=== PATIENT | female | born 1940 | race African-American/Black ===

== ENCOUNTER 2022-06-07 15:32 | Emergency (ER) | payer OTHER ==
[~2022-06-07] VITALS: Ht 149.9 cm; Wt 83.0 kg
[2022-06-07 16:13] VITALS: BP 112/63
[2022-06-07 18:07] LABS: Hematocrit 35.7 % (36.0-46.0); Hemoglobin 12.1 g/dL (12.2-16.2); Mean Corpuscular Hemoglobin 34.5 pg (28.0-32.0); Mean Corpuscular Volume 101.5 fL (80.0-100.0); Red Blood Cells 3.51 10^6/uL (4.0-5.20); Red Cell Distribution Width 13.4 % (11.8-14.3); White Blood Cell 3.9 10^3/uL (4.4-10.8)
[2022-06-07 18:09] LABS: Band Neutrophils % (manual) 0; Basophils % (manual) 0 (0.0-2.0); Blast Cells 0; Metamyelocytes % 0; Myelocytes % 0; Promyelocytes % 0; Reactive Lymphocytes 0
[2022-06-07 18:18] LABS: Albumin 3.6 g/dL (3.4-5.0); BUN/Creatinine Ratio 19.3; Calcium 8.4 mg/dL (8.5-10.1); Potassium 4.2 mmol/L (3.5-5.1)
[2022-06-07 18:20] LABS: Bilirubin, Total 0.4 mg/dL (0.2-1.0)
[2022-06-07 18:55] LABS: Eosinophils % (manual) 18 (0-7); Lymphocytes % (manual) 35 (10.0-50.0); Monocytes % (manual) 6 (0-12)
[2022-06-07] MEDS ORDERED: methylPREDNISolone SOD SUCC 125 MG/2 ML VL IV ONE (21:15)
[2022-06-07] MEDS ORDERED: diphenhdrAMINE HCL 50 MG/1 ML VL IV ONE (21:15)
[2022-06-07] MEDS ORDERED: IOHEXOL 350 MG/ML 100ML IJ ONE (22:36)
[2022-06-07] MEDS ORDERED: LORA-622 PO (23:02)
[2022-06-07] MEDS ORDERED: DEX4T PO (23:06)
[2022-06-07] MEDS ORDERED: METH4PAK PO (23:06)
== END 2022-06-07 23:59 | disposition home or self-care (01) ==
LOC: ER 15:32
DX: J30.9 Allergic rhinitis, unspecified (principal); Z20.822 Contact with and (suspected) exposure to COVID-19
CPT/HCPCS: 36415; 71046; 71275; 80053; 83605; 83735; 83880; 84484; 85007; 85027; 85379; 87040; 87426; 87804; 96374; 96375; 99285; J2930; Q9967

== ENCOUNTER 2024-01-25 18:18 | Emergency (ER) | payer OTHER, MEDICAID ==
[~2024-01-25] VITALS: Ht 162.6 cm; Wt 83.0 kg
[~2024-01-25 18:18] MED LIST: DEX4T PO; LORA-622 PO
[2024-01-25] MEDS: HYDROcodone-ACET 5/325MG TAB PO ONE (18:55)
[2024-01-25 19:23] LABS: Hematocrit 30.1 % (36.0-46.0)
[2024-01-25 19:25] LABS: Hemoglobin 9.8 g/dL (12.2-16.2); Mean Corpuscular Hemoglobin 34.5 pg (28.0-32.0); Mean Corpuscular Hgb Conc. 32.5 g/dL (32.0-36.0); Mean Corpuscular Volume 106.2 fL (80.0-100.0); Red Blood Cells 2.84 10^6/uL (4.0-5.20); Red Cell Distribution Width 14.6 % (11.8-14.3); White Blood Cell 3.9 10^3/uL (4.4-10.8)
[2024-01-25 19:38] LABS: Band Neutrophils % (manual) 0; Basophils % (manual) 0 (0.0-2.0); Blast Cells 0; Metamyelocytes % 0; Myelocytes % 0; Promyelocytes % 0; Reactive Lymphocytes 0
[2024-01-25 20:07] LABS: Alanine Aminotransferase 16 U/L (7-40); Albumin 3.5 g/dL (3.2-4.8); Alkaline Phosphatase 69 U/L (46-116); Anion Gap 15 (5-15); Aspartate Aminotransferase 42 U/L (13-40); BUN/Creatinine Ratio 12.5 (10.0-20.0); Blood Urea Nitrogen 15 mg/dL (9-23); Calcium 9.1 mg/dL (8.7-10.4); Carbon Dioxide 17 mmol/L (20-30); Chloride 107 mmol/L (98-107); Glucose 71 mg/dL (74-106); Lipase 46 U/L (12-53); Potassium 4.5 mmol/L (3.5-5.1); Sodium 139 mmol/L (136-145)
[2024-01-25 20:08] LABS: Bilirubin, Total 0.4 mg/dL (0.2-1.0); Total Protein 7.5 g/dL (5.7-8.2)
[2024-01-25 20:16] LABS: Lymphocytes % (manual) 21 (10.0-50.0); Monocytes % (manual) 6 (0-12)
[2024-01-25 20:17] LABS: Anisocytosis Slight; Eosinophils % (manual) 12 (0-7); Macrocytosis Slight; Platelet Estimate Decreased
[2024-01-25 20:33] LABS: Urine Bacteria FEW /hpf (None Seen); Urine Blood Negative /uL (Negative); Urine Clarity Turbid (Clear); Urine Color Light-Yellow (Yellow); Urine Protein, UAD TRACE (Negative); Urine Specific Gravity 1.015 (1.001-1.035); Urine Urobilinogen Normal (Negative); Urine WBC 12 /hpf (0 - 5)
[2024-01-25 20:56] VITALS: BP 126/62; TEMP 97.8
[2024-01-25] MEDS: cefTRIAXone 1GM/50ML D5W 50 ML IV ONE (21:28)
[2024-01-25] MEDS: CEPHALEXIN 250 MG CAP PO ONE (21:30)
[2024-01-25 21:34] VITALS: PULSE 66; RESP 18; O2SAT 99
[2024-01-25] MEDS ORDERED: CEPH500C PO (21:36)
== END 2024-01-25 21:40 | disposition admitted as inpatient to this hospital (09) ==
LOC: ER 18:18
DX: I77.6 Arteritis, unspecified (principal); E16.2 Hypoglycemia, unspecified; D69.6 Thrombocytopenia, unspecified; D64.9 Anemia, unspecified; N39.0 Urinary tract infection, site not specified; E66.01 Morbid (severe) obesity due to excess calories; Z91.041 Radiographic dye allergy status; Z88.2 Allergy status to sulfonamides; Z79.899 Other long term (current) drug therapy; Z68.31 Body mass index [BMI] 31.0-31.9, adult
CPT/HCPCS: 36415; 73562; 73590; 80053; 81001; 83605; 83690; 83880; 84484; 85007; 85027

== ENCOUNTER → 2024-02-25 | Emergency (ER) | payer OTHER, MEDICAID ==
[~2024-02-25] VITALS: Ht 152.4 cm; Wt 75.9 kg
[~2024-02-25] MED LIST changes: +CEPH500C PO
[2024-02-25 10:11] LABS: Basophils # (auto) 0 10 ^3/uL (0-0.2); Eosinophils # (auto) 0.5 10 ^3/uL (0-0.8); Hemoglobin 9.9 g/dL (12.2-16.2); Lymphocytes # (auto) 1.7 10 ^3/uL (0.4-5.4); Lymphocytes % (auto) 39.1 % (10.0-50.0); Nucleated Red Blood Cells % 0.1 %; White Blood Cell 4.3 10^3/uL (4.4-10.8)
[2024-02-25 10:15] LABS: Eosinophils % (auto) 11.1 % (0.0-7.0); Mean Corpuscular Hemoglobin 35.4 pg (28.0-32.0); Mean Corpuscular Hgb Conc. 33.2 g/dL (32.0-36.0); Mean Corpuscular Volume 106.8 fL (80.0-100.0); Monocytes # (auto) 0.3 10 ^3/uL (0-1.3); Neutrophils # (auto) 1.8 10 ^3/uL (1.6-8.6); Neutrophils % (auto) 40.8 % (37.0-80.0); Red Blood Cells 2.81 10^6/uL (4.0-5.20); Red Cell Distribution Width 15.4 % (11.8-14.3)
[2024-02-25 10:20] LABS: Chloride 108 mmol/L (98-107); Potassium 4.6 mmol/L (3.5-5.1); Sodium 141 mmol/L (136-145)
[2024-02-25 10:21] LABS: Anion Gap 6 (5-15); Calcium 8.8 mg/dL (8.7-10.4); Carbon Dioxide 27 mmol/L (20-30)
[2024-02-25 10:26] LABS: Blood Urea Nitrogen 20 mg/dL (9-23); Glucose 83 mg/dL (74-106)
[2024-02-25 11:12] VITALS: BP 130/52; TEMP 98.7
[2024-02-25 11:20] VITALS: PULSE 80; RESP 16; O2SAT 96
== END | disposition left against medical advice (07) ==
LOC: ER 08:42
DX: I50.9 Heart failure, unspecified (principal); R60.9 Edema, unspecified; D64.9 Anemia, unspecified; Z88.2 Allergy status to sulfonamides; Z88.0 Allergy status to penicillin; Z91.040 Latex allergy status; Z79.899 Other long term (current) drug therapy; Z98.890 Other specified postprocedural states
CPT/HCPCS: 36415; 80048; 83880; 84484; 85025; 93971

== ENCOUNTER 2024-12-11 10:53 | Emergency (ER) | payer MEDICARE, MEDICAID ==
[~2024-12-11] VITALS: Ht 162.6 cm; Wt 85.0 kg
--- NOTE | 2024-12-11 12:20 | ED.PDOC ---
Musculoskeletal HPI Comments A 84 YEAR OLD FEMALE PRESENTS TO THE ED WITH CHIEF COMPLAINT OF RIGHT HAND PAIN/TINGLING. PATIENT REPORTS THAT SHE HAS BEEN EXPERIENCING RIGHT HAND PAIN AND ASSOCIATED NUMBNESS AND TINGLING SINCE YESTERDAY. PER PT, SHE HAS DIFFICULTY CLOSED HER RIGHT HAND DUE TO NUMBNESS AND TINGLING SENSATION. PATIENT DENIES ANY CHEST PAIN, SOB, HEADACHE, NECK PAIN, BACK PAIN, FALL, OR INJURY. PT IS ALERT, ORIENTATION X4 WITH NORMAL GAIT. NO OTHER SYMPTOMS REPORTED AT THIS TIME OF CARE. Chief Complaint: Upper Extremity Time Seen by MD: 12:16 Primary Care Provider: ROBERTO Reviewed Notes: Nurses Notes, Medications, Allergies Allergies: Coded Allergies: Iodine (Verified Allergy, Mild, 06/07/22) Sulfa Antibiotics (Verified Allergy, Unknown, 01/25/24) Uncoded Allergies: PENICILLIN (Allergy, Mild, 06/07/22) Home Meds Active Scripts Cephalexin Monohydrate (Cephalexin) 500 Mg Cap, 1 CAP PO QID for 7 Days, #28 CAP Prov:TERRI RODAS PAC 01/25/24 Dexamethasone (Decadron) 4 Mg Tb, 4 TAB PO DAILY for 9 Days, #10 TAB Prov:RHINA BROWN DO 06/07/22 Loratadine (Claritin) 10 Mg Tab, 10 MG PO DAILY for 30 Days, #30 TAB Prov:RHINA BROWN S DO 06/07/22 Information Source: Patient Mode of Arrival: Wheelchair Location: Right Extremity Location: Hand Timing: Hours Prehospital treatment: None Severity: Moderate Able to Move Extremity: Yes Bear Weight: Fully Pain: Moderate Mechanism: Spontaneous Circumstances: Spontaneous Onset of Symptoms: Spontaneous Symptoms: Pain DVT Risk Factors: NONE Last Tetanus: UTD Associated signs and symptoms: Hand pain Past Medical History PAST MEDICAL HISTORY: CHF 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 DIRECTOR LONG TERM CARE History Family History Family History: Reviewed,noncontributory to illness, No family hx of Cancer, No family hx of DM, No family hx of Heart narendra, No family hx of HTN, No family hx ofKidney narendra, No family hx of Liver narendra, No family hx of Lung narendra, No family hx of Stroke Social History Smoker: Non-Smoker Alcohol: Denies ETOH Use Drugs: Denies Drug Use Lives In: Home Constitutional: denies: chills, diaphoresis, fatigue, fever, malaise, sweats, weakness, others EENTM: denies: blurred vision, double vision, ear bleeding, ear discharge, ear drainage, ear pain, ear ringing, eye pain, eye redness, hearing loss, mouth pain, mouth swelling, nasal discharge, nose bleeding, nose congestion, nose pain, photophobia, tearing, throat pain, throat swelling, voice changes, others Respiratory: denies: cough, hemoptysis, orthopnea, SOB at rest, shortness of breath, SOB with excertion, stridor, wheezing, others Cardiovascular: denies: chest pain, dizzy spells, diaphoresis, Dyspnea on exertion, edema, irregular heart beat, left arm pain, lightheadedness, palpitations, PND, syncope, others Gastrointestinal: denies: abdomen distended, abdominal pain, blood streaked bowels, constipated, diarrhea, dysphagia, difficulty swallowing, hematemesis, melena, nausea, poor appetite, poor fluid intake, rectal bleeding, rectal pain, vomiting, others Genitourinary: denies: abnormal vagina bleeding, burning, dyspareunia, dysuria, flank pain, frequency, hematuria, incontinence, pain, , vagina discharge, urgency, others Neurological: reports: paresthesia, tingling; denies: dizziness, fainting, headache, left sided numbness, left sided weakness, numbness, pre-existing deficit, right sided numbness, right sided weakness, seizure, speech problems, tremors, weakness, others Musculoskeletal: reports: others (RIGHT HAND NUMBNESS AND TINGLING); denies: back pain, gout, joint pain, joint swelling, muscle pain, muscle stiffness, neck pain Integumetry: denies: bruises, change in color, change in hair/nails, dryness, laceration, lesions, lumps, rash, wounds, others Allergic/Immunocompromised: denies: Difficulty Healing, Frequent Infections, Hives, Itching, others Hematologic/Lymphatic: denies: anemia, blood clots, easy bleeding, easy bruising, swollen glands, others Endocrine: denies: excessive hunger, excessive sweating, excessive thirst, excessive urination, flushing, intolerance to cold, intolerance to heat, un explained weight gain, unexplained weight loss, others Psychiatric: denies: anxiety, bipolar disorder, depression, hopeless, panic disorder, schizophrenia, sleepless, suicidal, others All Other Systems: Reviewed and Negative Physical Exam General Appearance: No Apparent Distress, Normal HEENT: Normal ENT Inspection, PERRL/EOMI, Pharynx Normal, TMs Normal Neck: Full Range of Motion, Non-Tender, Normal, Normal Inspection Respiratory: Chest Non-Tender, Lungs Clear, No Accessory Muscle Use, No R espiratory Distress, Normal Breath Sounds Cardiovascular: No Edema, No JVD, No Murmur, No Gallop, Normal Peripheral Pulses, Regular Rate/Rhythm Breast Exam: Deferred Gastrointestinal: No Organomegaly, Non Tender, No Pulsatile Mass, Normal Bowel Sounds, Soft Genitalia: Deferred Pelvic: Deferred Rectal: Deferred Extremities: No calf tenderness, Normal capillary refill, Normal inspection, Normal range of motion, Non-tender, No pedal edema, Other (NO REDNESS AND SWELLING ON RIGHT HAND, NEUROVASCULAR INTACT. ) Musculoskeletal : Apperance: Normal Neurologic: Alert, nylon hot wire cutter II-XII nml as Tested, No Motor Deficits, Normal Affect, Normal Mood, No Sensory Deficits Cerebellar Function: Normal Reflexes: Normal Skin: Dry, Normal Color, Warm Peripheral Pulses: 2+ carotid (R), 2+ carotid (L), 2+ Radial (R), 2+ Radial (L) Lymphatic: No Adenopathy Was a procedure done? Was a procedure done?: No Differential Diagnosis EXT Differential Diagnosis: Sprain, Contusion, Strain, Arthritis, Other (DDD OF C- SPINE ) X-Ray, Labs, Meds, VS Vital Signs Date Time Temp Pulse Resp B/P (MAP) Pulse Ox O2 Delivery O2 Flow Rate FiO2 12/11/24 13:30 60 17 98 Room Air 12/11/24 13:30 98.3 60 17 114/48 (70) 98 98.3 12/11/24 12:15 98.3 60 17 114/48 (70) 98 98.3 Lab Test 12/11/24 12:48 Range/Units White Blood Count 3.9 L 4.4-10.8 10^3/uL Red Blood Count 2.86 L 4.0-5.20 10^6/uL Hemoglobin 10.1 L 12.2-16.2 g/dL Hematocrit 30.4 L 36.0-46.0 % Mean Corpuscular Volume 106.3 H 80.0-100.0 fL Mean Corpuscular Hemoglobin 35.2 H 28.0-32.0 pg Mean Corpuscular Hemoglobin Concent 33.1 32.0-36.0 g/dL Red Cell Distribution Width 14.8 H 11.8-14.3 % Platelet Count 170 140-450 10^3/uL Mean Platelet Volume 7.5 6.9-10.8 fL Neutrophils (%) (Auto) 42.2 37.0-80.0 % Lymphocytes (%) (Auto) 37.5 10.0-50.0 % Monocytes (%) (Auto) 9.5 0.0-12.0 % Eosinophils (%) (Auto) 9.5 H 0.0-7.0 % Basophils (%) (Auto) 1.3 0.0-2.0 % Neutrophils # (Auto) 1.6 1.6-8.6 10 ^3/uL Lymphocytes # (Auto) 1.5 0.4-5.4 10 ^3/uL Monocytes # (Auto) 0.4 0-1.3 10 ^3/uL Eosinophils # (Auto) 0.4 0-0.8 10 ^3/uL Basophils # (Auto) 0 0-0.2 10 ^3/uL Nucleated Red Blood Cells 0.3 % Prothrombin Time 11.1 9.3-11.8 sec Prothrombin Time INR 1.05 0.9-1.15 Sodium Level 141 136-145 mmol/L Potassium Level 4.2 3.5-5.1 mmol/L Chloride Level 105 98-107 mmol/L Carbon Dioxide Level 26 20-31 mmol/L Anion Gap 10 5-15 Blood Urea Nitrogen 27 H 9-23 mg/dL Creatinine 1.09 H 0.550-1.02 mg/dL Glomerular Filtration Rate Calc 50 >90 mL/min BUN/Creatinine Ratio 24.8 H 10.0-20.0 Serum Glucose 84 74-106 mg/dL Calcium Level 8.7 8.7-10.4 mg/dL Troponin I High Sensitivity 6 </=34 ng/L B-Type Natriuretic Peptide Pending C-SPINE CT: FINDINGS: The cervical vertebral body heights are maintained. Severe multilevel disc space narrowing with endplate sclerosis, anterior and posterior osteophytosis. Moderate facet hypertrophic changes. The atlantoaxial, atlantooccipital articulations intact. Moderate to severe multilevel neural foraminal stenosis. IMPRESSION: 1. Severe cervical degenerative disc disease. CT: Findings: Iobx-ve-aqbvvrqm diffuse brain atrophy. Mild chronic small vessel ischemic changes. No hemorrhages, masses, mass effect, midline shift, herniation or cytotoxic edema following a large vascular territory. No intra-axial or extra-axial fluid collections. No evidence of hydrocephalus. The basal cisterns are patent. The pituitary gland, sella the parasellar regions are unremarkable. The cerebellar tonsils are in normal position. The cerebellum is unremarkable. The orbits and globes are unremarkable. Mild mucoperiosteal thickening of the ethmoid air cells, bilateral maxillary sinuses and left inferior frontal sinus. Otherwise, the paranasal sinuses and mastoids are clear. There are no worrisome calvarial lesions. Impression: No evidence of acute intracranial abnormality. If symptoms persist, consider MRI for further evaluation. X-Ray, Labs, Meds, VS Comment EXTERNAL MEDICAL RECORDS REVIEWED: [NONE] INDEPENDENT HISTORIANS: [NONE] SOCIAL DETERMINANTS OF HEALTH: [NONE] LABS ORDERED: CBC, BMP, TROPONIN, PT PTT, EKG, BNP, UA RESULTS: HGB 10.1 REVIEWED AND INTERPRETED RESULTS: CT C-SPINE, CT HEAD IMAGING ORDERED: CT C-SPINE, CT HEAD TREATMENTS ORDERED: PT DECLINED PROCEDURES PERFORMED: NONE CRITICAL CARE TIME: NONE 1330: PATIENT WISHES TO SIGN OUT AMA AND DOES NOT WANT TO BE ADMITTED AT THIS TIME. WILL BRING BACK PATIENT'S SON FOR FURTHER DISCUSSION. 1555: SPOKE WITH PATIENT'S SON AND HE AGREES PATIENT SHOULD BE ADMITTED FOR FURTHER INPATIENT EVALUATION, HOWEVER, PATIENT REMAINS ADAMANT TO NOT BE ADMITTED AND WISHES TO TILL SIGN OUT AMA. EXPLAINED TO PATIENT RISKS OF LEAVING AGAINST MEDICAL ADVICE UP TO AND INCLUDING . PATIENT UNDERSTANDS AND SIGNS OUT AMA. I HAVE DISCUSSED THE PATIENT WITH THE ATTENDING PHYSICIAN DR. WEI AND HE AGREES WITH THE PATIENT'S PLAN OF CARE AND DISPOSITION. Time of 1ST Reevaluation: 12:30 Reevaluation 1ST: Unchanged Time of 2ND Reevaluation: 14:13 Reevaluation 2ND: Unchanged Patient Education/Counseling: Diagnosis, Treatment Family Education/Counseling: Diagnosis, Treatment, No Family Present Departure 1 Departure Time of Disposition: 14:13 Impression: Primary Impression: Paresthesia of finger Additional Impressions: TIA (transient ischemic attack) DDD (degenerative disc disease), cervical Cervical radiculopathy Left against medical advice Disposition: LEFT AGAINST MEDICAL ADVICE Condition: Serious Critical Care Note Critical Care Time?: No Stability Stability form required: No Heart Score Heart Score: Heart Score Response (Comments) Value History N/A 0 EKG N/A 0 Age N/A 0 Risk Factors N/A 0 Troponin N/A 0 Total 0 I personally scribed for MEGHANN YOUNG ([email or web address]) on 12/11/24 at 12:20. Electronically submitted by Lv Rodas ([email or web address]). I personally scribed for MEGHANN YOUNG ([email or web address]) on 12/11/24 at 13:44. Electronically submitted by Lv Rodas ([email or web address]). I personally scribed for MEGHANN YOUNG ([email or web address]) on 12/11/24 at 13:58. Electronically submitted by Lv Rodas ([email or web address]). MEGHANN YOUNG December 11, 2024 12:20
[2024-12-11 13:03] LABS: Basophils # (auto) 0 10 ^3/uL (0-0.2); Nucleated Red Blood Cells % 0.3 %
[2024-12-11 13:06] LABS: Basophils % (auto) 1.3 % (0.0-2.0); Eosinophils # (auto) 0.4 10 ^3/uL (0-0.8); Eosinophils % (auto) 9.5 % (0.0-7.0); Hematocrit 30.4 % (36.0-46.0); Hemoglobin 10.1 g/dL (12.2-16.2); Lymphocytes # (auto) 1.5 10 ^3/uL (0.4-5.4); Lymphocytes % (auto) 37.5 % (10.0-50.0); Mean Corpuscular Hemoglobin 35.2 pg (28.0-32.0); Mean Corpuscular Hgb Conc. 33.1 g/dL (32.0-36.0); Mean Corpuscular Volume 106.3 fL (80.0-100.0); Monocytes # (auto) 0.4 10 ^3/uL (0-1.3); Monocytes % (auto) 9.5 % (0.0-12.0); Neutrophils # (auto) 1.6 10 ^3/uL (1.6-8.6); Neutrophils % (auto) 42.2 % (37.0-80.0); Platelet Count (auto) 170 10^3/uL (140-450); Red Blood Cells 2.86 10^6/uL (4.0-5.20); Red Cell Distribution Width 14.8 % (11.8-14.3); White Blood Cell 3.9 10^3/uL (4.4-10.8)
[2024-12-11 13:13] LABS: Chloride 105 mmol/L (98-107); Potassium 4.2 mmol/L (3.5-5.1); Sodium 141 mmol/L (136-145)
[2024-12-11 13:14] LABS: Anion Gap 10 (5-15); Carbon Dioxide 26 mmol/L (20-31)
[2024-12-11 13:15] LABS: Calcium 8.7 mg/dL (8.7-10.4)
[2024-12-11 13:17] LABS: INR 1.05 (0.9-1.15); Prothrombin Time 11.1 sec (9.3-11.8)
[2024-12-11 13:20] LABS: BUN/Creatinine Ratio 24.8 (10.0-20.0); Blood Urea Nitrogen 27 mg/dL (9-23); Glucose 84 mg/dL (74-106)
[2024-12-11 13:30] VITALS: BP 114/48; PULSE 60; RESP 17; TEMP 98.3; O2SAT 98
--- NOTE | 2024-12-11 13:33 | DVH ---
Procedure: CT HEAD WITHOUT CONTRAST Study Date and Requested Time: 12/11/2024 12:32 PM History: RIGHT HAND NUMBNESS AND TINGLING SENSATION Comparison: None Dose: CTDI: 52.9 mGy DLP: 848.09 mGycm Technique: Multiplanar images obtained through the brain without intravenous contrast. Findings: Ounv-es-[id number] diffuse brain atrophy. Mild chronic small vessel ischemic changes. No hemorrhages, masses, mass effect, midline shift, herniation or cytotoxic edema following a large v ascular territory. No intra-axial or extra-axial fluid collections. No evidence of hydrocephalus. The basal cisterns are patent. The pituitary gland, sella the parasellar regions are unremarkable. The cerebellar tonsils are in nor mal position. The cerebellum is unremarkable. The orbits and globes are unremarkable. Mild mucoperiosteal thickening of the ethmoid air cells, bila teral maxillary sinuses and left inferior frontal sinus. Otherwise, the paranasal sinuses and mastoi ds are clear. There are no worrisome calvarial lesions. Impression: No evidence of acute intracranial abnormality. If symptoms persist, consider MRI for further evaluati on.
--- NOTE | 2024-12-11 13:37 | DVH ---
Indication: RIGHT HAND NUMBNESS AND TINGLING SENSATION Technique: CT axial images of the cervical spine are obtained without contrast. Coronal and sagittal reformats were obtained. Radiation Dose Information: CTDI volume is 20.45 mGy. Dose-length product is 451.59 mGy*cm Comparison: None FINDINGS: The cervical vertebral body heights are maintained. Severe multilevel disc space narrowing with endp late sclerosis, anterior and posterior osteophytosis. Moderate facet hypertrophic changes. The atla ntoaxial, atlantooccipital articulations intact. Moderate to severe multilevel neural foraminal stenosis. IMPRESSION: 1. Severe cervical degenerative disc disease.
== END 2024-12-11 14:12 | disposition left against medical advice (07) ==
LOC: ER 10:53
DX: G45.9 Transient cerebral ischemic attack, unspecified (principal); M79.641 Pain in right hand; M50.30 Other cervical disc degeneration, unspecified cervical region; M54.12 Radiculopathy, cervical region; I50.9 Heart failure, unspecified; Z91.041 Radiographic dye allergy status; Z88.0 Allergy status to penicillin; Z88.2 Allergy status to sulfonamides
CPT/HCPCS: 36415; 70450; 72125; 80048; 83880; 84484; 85025; 85610